=== PATIENT | male | born 1960 | race Caucasian/White ===

== ENCOUNTER 2021-05-10 13:07 | Emergency (ER) | payer OTHER ==
[~2021-05-10] VITALS: Ht 170.2 cm; Wt 68.2 kg
[2021-05-10 13:11] VITALS: BP 153/79
[2021-05-10] MEDS ORDERED: OXYC-145 PO (16:05)
== END 2021-05-10 16:14 | disposition home or self-care (01) ==
LOC: ER 13:08
DX: M54.2 Cervicalgia (principal); C44.42 Squamous cell carcinoma of skin of scalp and neck; Z88.8 Allergy status to other drugs, medicaments and biological substances; Z79.899 Other long term (current) drug therapy
CPT/HCPCS: 99283

== ENCOUNTER 2022-03-10 12:39 | Outpatient (CLI) | payer OTHER ==
[~2022-03-10 12:39] MED LIST: OXYC-145 PO
== END 2022-03-10 23:59 | disposition home or self-care (01) ==
LOC: RAD 12:39
PROVIDERS: ATTEND Chiropractor
DX: T14.8XXA Other injury of unspecified body region, initial encounter (principal); X58.XXXA Exposure to other specified factors, initial encounter; Y93.89 Activity, other specified; Y92.89 Other specified places as the place of occurrence of the external cause; Y99.8 Other external cause status
CPT/HCPCS: 71101

== ENCOUNTER 2022-05-22 08:17 | Day surgery (SDC) | payer OTHER ==
[2022-05-18 11:36] LABS: BASOPHILS # (AUTO) 0.1 X10'3 (0-0.2); BASOPHILS % (AUTO) 0.5 % (0-1); EOSINOPHILS # (AUTO) 0.2 X10'3 (0-0.9); EOSINOPHILS % (AUTO) 1.8 % (0-6); LYMPHOCYTES # (AUTO) 0.4 X10'3 (1.1-4.8); LYMPHOCYTES % (AUTO) 3.8 % (21-51); MEAN CORPUSCULAR HEMOGLOBIN 32.4 PG (27.0-31.0); MEAN CORPUSCULAR HGB CONC 33.7 g/dL (33.0-36.5); MEAN CORPUSCULAR VOLUME 96.1 FL (78-98); MEAN PLATELET VOLUME 8.5 FL (7.4-10.4); MONOCYTES # (AUTO) 0.5 X10'3 (0-0.9); MONOCYTES % (AUTO) 4.3 % (2-12); NEUTROPHILS # (AUTO) 10.2 X10'3 (1.8-7.7); NEUTROPHILS % (AUTO) 89.6 % (42-75); PRE OP HEMATOCRIT 39.3 % (42.0-52.0); PRE OP HEMOGLOBIN 13.2 g/dL (14.0-17.9); PRE OP PLATELET COUNT 215 X10'3 (140-440); RED BLOOD COUNT 4.09 X10'6 (4.70-6.10); RED CELL DISTRIBUTION WIDTH 13.6 % (11.5-14.5)
[2022-05-18 12:24] LABS: ALBUMIN 4.1 G/DL (3.4-5.0); ALBUMIN/GLOBULIN RATIO 1.2 (1.1-1.5); ALKALINE PHOSPHATASE 85 IU/L (46-116); BLOOD UREA NITROGEN 22 MG/DL (7-18); BUN/CREATININE RATIO 12.2 (5.4-32.0); CALCIUM 9.9 MG/DL (8.5-10.1); CHLORIDE 104 MMOL/L (99-107); PRE OP ALT 16 U/L (30-65); PRE OP ANION GAP 9 (8-16); PRE OP AST 15 U/L (10-37); PRE OP BILIRUB, TOTAL 0.3 MG/DL (0.0-1.0); PRE OP GLUCOSE 86 MG/DL (70-104); PRE OP SODIUM 139 MMOL/L (135-145); TOTAL CARBON DIOXIDE 25.9 MMOL/L (24-32); TOTAL PROTEIN 7.5 G/DL (6.4-8.2); eGFR 38 ML/MIN
[~2022-05-22] VITALS: Ht 170.2 cm; Wt 61.2 kg
[~2022-05-22 08:17] MED LIST changes: +NO HOME MEDS; -OXYC-145 PO; +albuterol 2.5 MG/3 ML nebule NEB PRN; +ceFAZolin inj. 2,000 MG in dextrose 5%-water 100 ML IV ONE; +famotidine 20mg tablet PO ONE; +ringers solution, lacted 1,000 ML IV SCH
[2022-05-22] MEDS ORDERED: ondansetron/PF 4mg/2ml inj IV PRN (09:25)
[2022-05-22] MEDS ORDERED: morphine 2 MG/ML inj. syringe IV PRN (09:25)
[2022-05-22] MEDS ORDERED: morphine 4 MG/ML inj SYRINge IV PRN (09:25)
[2022-05-22] MEDS ORDERED: proCHLORperazine 10 MG/2 ml inj IV PRN (09:25)
[2022-05-22] MEDS ORDERED: LIDOcaine 0.5% (5mg/ml) 50ml vial ONE (09:25)
[2022-05-22] MEDS ORDERED: meperidine/PF 25mg/ml syringe IV PRN ×3 (09:25)
[2022-05-22] MEDS ORDERED: ringers solution, lacted 1,000 ML IV SCH (09:25)
[2022-05-22] MEDS ORDERED: LIDOcaine 1% 30ml preserv. free vial ONE (09:26)
[2022-05-22] MEDS ORDERED: BUPIVAcaine/PF 5 mg/ml 10ml ONE (09:59)
[2022-05-22] MEDS ORDERED: fentaNYL/PF 50MCG/1 ML 2ML syringe ONE (10:36)
[2022-05-22] MEDS ORDERED: midazolam 1 mg/ML 2ml injection ONE (10:36)
[2022-05-22 11:08] VITALS: BP 128/83
--- NOTE | 2022-05-22 11:08 | NUR ---
Received from OR via [facility], accompanied by Anesthesiologist and report given by RANJEET Anesthesiologist. PATIENT WAKING UP, DENIES PAIN, V/S WNL, PIV 20G TO RIGHT HAND, LEFT WRIST DRESSING C/D/I. ICE AND ELEVATED LUE. Addendum: 05/22/22 at 1207 by Miky Sosa RN Amended: Links added.
--- NOTE | 2022-05-22 11:08 | NUR ---
Received from OR via [facility], accompanied by Anesthesiologist and report given by RANJEET Anesthesiologist. PATIENT WAKING UP, DENIES PAIN, V/S WNL, PIV 20G TO RIGHT HAND, LEFT WRIST DRESSING C/D/I. ICE AND ELEVATED RUE.
[2022-05-22 11:20] VITALS: BP 142/71
[2022-05-22 11:30] VITALS: BP 133/77
[2022-05-22 11:40] VITALS: BP 145/76
[2022-05-22 11:47] VITALS: BP 126/71
--- NOTE | 2022-05-22 11:48 | NUR ---
ALL DISCHARGE CRITERIA HAS BEEN MET. VSS, PAIN AT A TOLERABLE LEVEL, ABLE TO SAFELY AMBULATE AND TRANSFER SELF. IV TAKEN OUT WITHOUT ANY COMPLICATIONS. ALL DISCHARGE INSTRUCTIONS COVERED WITH PATIENT AND ALL QUESTIONS ANSWERED. PATIENT TAKEN OUT VIA WHEELCHAIR WITH ALL BELONGINGS TO PERSONAL VEHICLE WHERE FAMILY DROVE PATIENT HOME. Addendum: 05/22/22 at 1210 by Miky Sosa RN Amended: Links added.
== END 2022-05-22 11:48 | disposition home or self-care (01) ==
LOC: PAS 08:17
PROVIDERS: ATTEND Orthopaedic Surgery Hand Surgery
DX: M72.0 Palmar fascial fibromatosis [Dupuytren] (principal); I10 Essential (primary) hypertension; E78.00 Pure hypercholesterolemia, unspecified; F17.290 Nicotine dependence, other tobacco product, uncomplicated; Z88.5 Allergy status to narcotic agent; Z79.899 Other long term (current) drug therapy; Z98.890 Other specified postprocedural states; Z72.89 Other problems related to lifestyle; Z86.711 Personal history of pulmonary embolism; Z85.828 Personal history of other malignant neoplasm of skin; Z85.818 Personal history of malignant neoplasm of other sites of lip, oral cavity, and pharynx
CPT/HCPCS: 26123; 36415; 80053; 82948; 85025; 93005; A6222; J0690; J2250; J3010; J3490; J7030; J7060; J7120; Z7506; Z7512; A4215; A4618; A6449; A7000